=== PATIENT | male | born 1960 | race African-American/Black ===

== ENCOUNTER 2017-01-05 12:03 | Inpatient (IN) | payer SELFPAY ==
[~2017-01-05] VITALS: Ht 167.6 cm; Wt 86.2 kg
[2017-01-05] MEDS ORDERED: IV NORMAL SALINE 1000ML BAG 1,000 ML IV ONE (12:30)
--- NOTE | 2017-01-05 12:34 | RAD ---
Portable chest, 01/05/2017: History: Dizziness The heart size and pulmonary vascularity are normal. No pulmonary infiltrates are seen. There is no evidence of pleural fluid. IMPRESSION: No acute cardiopulmonary abnormality is detected.
[2017-01-05 12:52] LABS: BASO % 0 % (0-3); EOS % 1 % (0-3); HEMATOCRIT 45.9 % (39.0-53.0); HEMOGLOBIN 15.5 g/dL (13.0-17.5); LYMPH # 1.9 x10^3/uL (1.0-4.8); LYMPH % 23 % (24-48); MEAN CORPUSCULAR HEMOGLOBIN 28 pg (25-35); MEAN CORPUSCULAR HGB CONC 34 g/dL (31-37); MEAN CORPUSCULAR VOLUME 83 fL (79-100); MONO % 6 % (0-9); NEUT % 70 % (31-73); PLATELET COUNT 231 x10^3/uL (140-400); RED BLOOD COUNT 5.56 x10^6/uL (4.30-5.70); RED CELL DISTRIBUTION WIDTH 13.4 % (11.5-14.5); WHITE BLOOD COUNT 8.3 x10^3/uL (4.0-11.0)
--- NOTE | 2017-01-05 12:56 | RAD ---
CT of the head without contrast, 01/05/2017: History: Transient loss of consciousness The ventricles are within normal limits in size. There is no shift of the midline structures. There is no evidence of acute intracranial hemorrhage or mass effect. IMPRESSION: The CT of the head without contrast reveals no significant abnormality. PQRS Compliance Statement: One or more of the following individualized dose reduction techniques were utilized for this examination: 1. Automated exposure control 2. Adjustment of the mA and/or kV according to patient size 3. Use of iterative reconstruction technique
[2017-01-05 12:57] LABS: CREATININE 1.2 mg/dL (0.7-1.3); GFR 75.8; POTASSIUM 4.1 mmol/L (3.5-5.1)
[2017-01-05 13:03] LABS: ALBUMIN 3.7 g/dL (3.4-5.0); ALBUMIN/GLOBULIN RATIO 0.9 (1.0-1.7); MAGNESIUM 1.9 mg/dL (1.8-2.4); TOTAL BILIRUBIN 0.5 mg/dL (0.2-1.0); TOTAL PROTEIN 7.6 g/dL (6.4-8.2)
[2017-01-05 13:04] LABS: INR 1.2 (0.8-1.1); PROTHROMBIN TIME PATIENT 14.1 SEC (11.7-14.0)
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
[2017-01-05] MEDS ORDERED: fentaNYL PF VIAL 100 MCG/2 ML VIAL IV PRN (13:30)
[2017-01-05] MEDS ORDERED: ONDANSETRON PF 4 MG/2 ML VIAL. IV PRN (13:30)
--- NOTE | 2017-01-05 14:53 | EKG ---
[facility] [address] [place] [address] Test Date: 2017-01-05 Test Time: 12:16:44 Pat Name: BETZY YEAGER Department: Room: Gender: M [employer] Mate: : 1960 Requested By: SAMINA WILSON Order Number: [id number] Reading MD: Measurements Intervals [place] Rate: 100 P: [place]: QRS: 10 QRSD: 78 T: 40 QT: 328 QTc: 426 Interpretive Statements ATRIAL FIB./FLUTTER WITH RAPID VENTRICULAR RESPONSE QRS(T) CONTOUR ABNORMALITY CONSIDER ANTEROSEPTAL MYOCARDIAL DAMAGE RI6.01 Unconfirmed report No previous ECG available for comparison
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
[2017-01-05 15:00] VITALS: BP 109/61
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
[2017-01-05 16:39] LABS: CHOLESTEROL/HDL RATIO 5.3
[2017-01-05 16:54] VITALS: BP 116/63
[2017-01-05 16:55] VITALS: BP 129/85
[2017-01-05 16:56] VITALS: BP 144/103
[2017-01-05 19:58] VITALS: BP 105/66
[2017-01-05 22:24] VITALS: BP 121/72
[2017-01-06 02:57] VITALS: BP 108/68
[2017-01-06 04:14] LABS: BASO % 0 % (0-3); EOS % 1 % (0-3); HEMATOCRIT 45.2 % (39.0-53.0); HEMOGLOBIN 14.9 g/dL (13.0-17.5); LYMPH # 2.8 x10^3/uL (1.0-4.8); LYMPH % 27 % (24-48); MEAN CORPUSCULAR HEMOGLOBIN 28 pg (25-35); MEAN CORPUSCULAR HGB CONC 33 g/dL (31-37); MEAN CORPUSCULAR VOLUME 84 fL (79-100); MONO % 8 % (0-9); NEUT % 63 % (31-73); PLATELET COUNT 203 x10^3/uL (140-400); RED BLOOD COUNT 5.38 x10^6/uL (4.30-5.70); RED CELL DISTRIBUTION WIDTH 13.1 % (11.5-14.5); WHITE BLOOD COUNT 10.2 x10^3/uL (4.0-11.0)
[2017-01-06 04:28] LABS: CALCIUM 8.3 mg/dL (8.5-10.1); GFR 93.5; POTASSIUM 3.9 mmol/L (3.5-5.1)
[2017-01-06 07:00] VITALS: BP 101/78
--- NOTE | 2017-01-06 08:59 | PDOC ---
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 01/06/17 0859: CARDIO Progress Notes Date and Time Date of Service 01/06/17 Time of Evaluation 0855 Subjective Subjective: No Chest Pain, No shortness of breath, No Palpitations Vitals Vitals Vital Signs Date Time Temp Pulse Resp B/P (MAP) Pulse Ox O2 Delivery O2 Flow Rate FiO2 01/06/17 07:35 Room Air 01/06/17 07:00 98.4 51 18 101/78 (86) 97 98.4 Weight Weight [ ] Input and Output Intake and Output Intake and Output 01/06/17 07:00 Intake Total 900 ml Output Total 1050 ml Balance -150 ml Intake Oral 900 ml Output Urine Total 1050 ml Laboratory Labs Laboratory Tests Test 01/05/17 12:35 01/05/17 19:25 01/06/17 01:35 01/06/17 03:35 White Blood Count 8.3 x10^3/uL (4.0-11.0) 10.2 x10^3/uL (4.0-11.0) Red Blood Count 5.56 x10^6/uL (4.30-5.70) 5.38 x10^6/uL (4.30-5.70) Hemoglobin 15.5 g/dL (13.0-17.5) 14.9 g/dL (13.0-17.5) Hematocrit 45.9 % (39.0-53.0) 45.2 % (39.0-53.0) Mean Corpuscular Volume 83 fL (79-100) 84 fL (79-100) Mean Corpuscular Hemoglobin 28 pg (25-35) 28 pg (25-35) Mean Corpuscular Hemoglobin Concent 34 g/dL (31-37) 33 g/dL (31-37) Red Cell Distribution Width 13.4 % (11.5-14.5) 13.1 % (11.5-14.5) Platelet Count 231 x10^3/uL (140-400) 203 x10^3/uL (140-400) Neutrophils (%) (Auto) 70 % (31-73) 63 % (31-73) Lymphocytes (%) (Auto) 23 % (24-48) 27 % (24-48) Monocytes (%) (Auto) 6 % (0-9) 8 % (0-9) Eosinophils (%) (Auto) 1 % (0-3) 1 % (0-3) Basophils (%) (Auto) 0 % (0-3) 0 % (0-3) Neutrophils # (Auto) 5.8 x10^3uL (1.8-7.7) 6.5 x10^3uL (1.8-7.7) Lymphocytes # (Auto) 1.9 x10^3/uL (1.0-4.8) 2.8 x10^3/uL (1.0-4.8) Monocytes # (Auto) 0.5 x10^3/uL (0.0-1.1) 0.8 x10^3/uL (0.0-1.1) Eosinophils # (Auto) 0.1 x10^3/uL (0.0-0.7) 0.1 x10^3/uL (0.0-0.7) Basophils # (Auto) 0.0 x10^3/uL (0.0-0.2) 0.0 x10^3/uL (0.0-0.2) Prothrombin Time 14.1 SEC (11.7-14.0) Prothromb Time International Ratio 1.2 (0.8-1.1) Activated Partial Thromboplast Time 29 SEC (24-38) Sodium Level 143 mmol/L (136-145) 144 mmol/L (136-145) Potassium Level 4.1 mmol/L (3.5-5.1) 3.9 mmol/L (3.5-5.1) Chloride Level 106 mmol/L (98-107) 108 mmol/L (98-107) Carbon Dioxide Level 27 mmol/L (21-32) 28 mmol/L (21-32) Anion Gap 10 (6-14) 8 (6-14) Blood Urea Nitrogen 16 mg/dL (8-26) 12 mg/dL (8-26) Creatinine 1.2 mg/dL (0.7-1.3) 1.0 mg/dL (0.7-1.3) Estimated GFR (Cockcroft-Gault) 75.8 93.5 BUN/Creatinine Ratio 13 (6-20) Glucose Level 120 mg/dL (70-99) 95 mg/dL (70-99) Calcium Level 9.0 mg/dL (8.5-10.1) 8.3 mg/dL (8.5-10.1) Magnesium Level 1.9 mg/dL (1.8-2.4) Total Bilirubin 0.5 mg/dL (0.2-1.0) Aspartate Amino Transf (AST/SGOT) 18 U/L (15-37) Alanine Aminotransferase (ALT/SGPT) 25 U/L (16-63) Alkaline Phosphatase 79 U/L (46-116) Creatine Kinase 184 U/L (39-308) Troponin I Quantitative < 0.017 ng/mL (0.000-0.055) < 0.017 ng/mL (0.000-0.055) < 0.017 ng/mL (0.000-0.055) MM-Pjb-T-Type Natriuretic Peptide 377 pg/mL (0-124) Total Protein 7.6 g/dL (6.4-8.2) Albumin 3.7 g/dL (3.4-5.0) Albumin/Globulin Ratio 0.9 (1.0-1.7) Triglycerides Level 274 mg/dL (0-150) Cholesterol Level 224 mg/dL (0-200) LDL Cholesterol, Calculated 127 mg/dL (0-100) VLDL Cholesterol, Calculated 55 mg/dL (0-40) Non-HDL Cholesterol Calculated 182 mg/dL (0-129) HDL Cholesterol 42 mg/dL (40-60) Cholesterol/HDL Ratio 5.3 Lipase 113 U/L (73-393) Thyroid Stimulating Hormone (TSH) 1.413 uIU/mL (0.358-3.74) Ethyl Alcohol Level < 10 mg/dL (0-10) Physical Exam HEENT: Neck Supple W Full Motion Chest: Symmetric LUNGS: Clear to Auscultation Heart: S1S2, no murmurs, other (presently SR with PAC's and PVC's. having periods of bigeminal PVC's, afib/flutter, and bradycardia) Abdomen: Soft N/T Extremities: 2+ Dorsalis Pedis, No Edema Neurology: alert, oriented, follow commands Assessment Assessment 1. Presyncope 2. Paroxysmal atrial fibrillation/flutter 3. Bradyarrhythmia 4. Dyslipidemia Recommendations Check echo to evaluate LV function Add antidysrhythmic for suppression; QTc 426 Add ASA for stroke prevention. Although [id number] 1, could consider addition of OAC. Statin therapy SOCORRO DIMAS MD 01/06/17 1137: CARDIO Progress Notes Plan Plan Patient seen and examined. Agree with above nurse practitioner note. Patient continues to have intermittent bradycardia arrhythmias as well as paroxysmal atrial tachycardia including Mobitz type I block. No clear indication for pacemaker as the patient has not had any symptoms here. We'll initiate flecainide therapy and await echocardiogram. Ultimately, will need follow-up and will try to arrange mental health social worker to help with post hospital care. 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 APRN Jan 06, 2017 08:59 SOCORRO DIMAS MD Jan 06, 2017 11:37
[2017-01-06] MEDS: FLECAINIDE ACETATE 50 MG TABLET. PO SCH ×2 (10:48→20:51)
[2017-01-06 11:00] VITALS: BP 102/71
[2017-01-06] MEDS: ASPIRIN ENTERIC COATED 81 MG TABLET.DR. PO SCH (11:00)
--- NOTE | 2017-01-06 11:28 | PDOC ---
PROGRESS NOTES Chief Complaint Chief Complaint 1. Presyncope 2. Paroxysmal atrial fibrillation/flutter 3. Bradyarrhythmia 4. Dyslipidemia 5. History of Present Illness History of Present Illness pt is doing well this morning, he denies any complaints, explained pathophysiology of his arrhythmia to pt and his vggikkh-oh-zaw, echo planned for today Vitals Vitals Vital Signs Date Time Temp Pulse Resp B/P (MAP) Pulse Ox O2 Delivery O2 Flow Rate FiO2 01/06/17 11:00 97.4 96 18 102/71 (81) 96 Room Air 97.4 Physical Exam General: Alert, Oriented X3, Cooperative, No acute distress Heart: Other (irregular rate and rhythm) Lungs: Clear Abdomen: Normal bowel sounds, Soft, No tenderness Extremities: No clubbing, No cyanosis, No edema, Normal pulses Skin: No rashes, No breakdown, No significant lesion Labs LABS Laboratory Tests Test 01/05/17 12:35 01/05/17 19:25 01/06/17 01:35 01/06/17 03:35 White Blood Count 8.3 x10^3/uL (4.0-11.0) 10.2 x10^3/uL (4.0-11.0) Red Blood Count 5.56 x10^6/uL (4.30-5.70) 5.38 x10^6/uL (4.30-5.70) Hemoglobin 15.5 g/dL (13.0-17.5) 14.9 g/dL (13.0-17.5) Hematocrit 45.9 % (39.0-53.0) 45.2 % (39.0-53.0) Mean Corpuscular Volume 83 fL (79-100) 84 fL (79-100) Mean Corpuscular Hemoglobin 28 pg (25-35) 28 pg (25-35) Mean Corpuscular Hemoglobin Concent 34 g/dL (31-37) 33 g/dL (31-37) Red Cell Distribution Width 13.4 % (11.5-14.5) 13.1 % (11.5-14.5) Platelet Count 231 x10^3/uL (140-400) 203 x10^3/uL (140-400) Neutrophils (%) (Auto) 70 % (31-73) 63 % (31-73) Lymphocytes (%) (Auto) 23 % (24-48) 27 % (24-48) Monocytes (%) (Auto) 6 % (0-9) 8 % (0-9) Eosinophils (%) (Auto) 1 % (0-3) 1 % (0-3) Basophils (%) (Auto) 0 % (0-3) 0 % (0-3) Neutrophils # (Auto) 5.8 x10^3uL (1.8-7.7) 6.5 x10^3uL (1.8-7.7) Lymphocytes # (Auto) 1.9 x10^3/uL (1.0-4.8) 2.8 x10^3/uL (1.0-4.8) Monocytes # (Auto) 0.5 x10^3/uL (0.0-1.1) 0.8 x10^3/uL (0.0-1.1) Eosinophils # (Auto) 0.1 x10^3/uL (0.0-0.7) 0.1 x10^3/uL (0.0-0.7) Basophils # (Auto) 0.0 x10^3/uL (0.0-0.2) 0.0 x10^3/uL (0.0-0.2) Prothrombin Time 14.1 SEC (11.7-14.0) Prothromb Time International Ratio 1.2 (0.8-1.1) Activated Partial Thromboplast Time 29 SEC (24-38) Sodium Level 143 mmol/L (136-145) 144 mmol/L (136-145) Potassium Level 4.1 mmol/L (3.5-5.1) 3.9 mmol/L (3.5-5.1) Chloride Level 106 mmol/L (98-107) 108 mmol/L (98-107) Carbon Dioxide Level 27 mmol/L (21-32) 28 mmol/L (21-32) Anion Gap 10 (6-14) 8 (6-14) Blood Urea Nitrogen 16 mg/dL (8-26) 12 mg/dL (8-26) Creatinine 1.2 mg/dL (0.7-1.3) 1.0 mg/dL (0.7-1.3) Estimated GFR (Cockcroft-Gault) 75.8 93.5 BUN/Creatinine Ratio 13 (6-20) Glucose Level 120 mg/dL (70-99) 95 mg/dL (70-99) Calcium Level 9.0 mg/dL (8.5-10.1) 8.3 mg/dL (8.5-10.1) Magnesium Level 1.9 mg/dL (1.8-2.4) Total Bilirubin 0.5 mg/dL (0.2-1.0) Aspartate Amino Transf (AST/SGOT) 18 U/L (15-37) Alanine Aminotransferase (ALT/SGPT) 25 U/L (16-63) Alkaline Phosphatase 79 U/L (46-116) Creatine Kinase 184 U/L (39-308) Troponin I Quantitative < 0.017 ng/mL (0.000-0.055) < 0.017 ng/mL (0.000-0.055) < 0.017 ng/mL (0.000-0.055) VR-Lug-A-Type Natriuretic Peptide 377 pg/mL (0-124) Total Protein 7.6 g/dL (6.4-8.2) Albumin 3.7 g/dL (3.4-5.0) Albumin/Globulin Ratio 0.9 (1.0-1.7) Triglycerides Level 274 mg/dL (0-150) Cholesterol Level 224 mg/dL (0-200) LDL Cholesterol, Calculated 127 mg/dL (0-100) VLDL Cholesterol, Calculated 55 mg/dL (0-40) Non-HDL Cholesterol Calculated 182 mg/dL (0-129) HDL Cholesterol 42 mg/dL (40-60) Cholesterol/HDL Ratio 5.3 Lipase 113 U/L (73-393) Thyroid Stimulating Hormone (TSH) 1.413 uIU/mL (0.358-3.74) Ethyl Alcohol Level < 10 mg/dL (0-10) Review of Systems Review of Systems denies nausea, vomiting, or MELENDEZ Assessment and Plan Assessmemt and Plan Assessment 1. Presyncope 2. Paroxysmal atrial fibrillation/flutter 3. Bradyarrhythmia 4. Dyslipidemia 5. HLP Plan 1. Echo today 2. Antiarrythmic medications per cardiology 3. Start ASA, statin 4. Lipid panel showed 274 tri, 224 chol, 127 LDL, 42 HDL 5. TSH 1.413 6. Appreciate cardiology subspecialty input 7. Discussed plan of care with nursing 8. PT/OT 9. Recheck CBC and BMP tomorrow 10. Reviewed imaging: Head CT showed no acute processes, CXR showed no acute processes 11. Zofran prn for nausea Problems: Comment Review of Relevant I have reviewed the following items tianna (where applicable) has been applied. Labs Laboratory Tests Test 01/05/17 12:35 01/05/17 19:25 01/06/17 01:35 01/06/17 03:35 White Blood Count 8.3 x10^3/uL (4.0-11.0) 10.2 x10^3/uL (4.0-11.0) Red Blood Count 5.56 x10^6/uL (4.30-5.70) 5.38 x10^6/uL (4.30-5.70) Hemoglobin 15.5 g/dL (13.0-17.5) 14.9 g/dL (13.0-17.5) Hematocrit 45.9 % (39.0-53.0) 45.2 % (39.0-53.0) Mean Corpuscular Volume 83 fL (79-100) 84 fL (79-100) Mean Corpuscular Hemoglobin 28 pg (25-35) 28 pg (25-35) Mean Corpuscular Hemoglobin Concent 34 g/dL (31-37) 33 g/dL (31-37) Red Cell Distribution Width 13.4 % (11.5-14.5) 13.1 % (11.5-14.5) Platelet Count 231 x10^3/uL (140-400) 203 x10^3/uL (140-400) Neutrophils (%) (Auto) 70 % (31-73) 63 % (31-73) Lymphocytes (%) (Auto) 23 % (24-48) 27 % (24-48) Monocytes (%) (Auto) 6 % (0-9) 8 % (0-9) Eosinophils (%) (Auto) 1 % (0-3) 1 % (0-3) Basophils (%) (Auto) 0 % (0-3) 0 % (0-3) Neutrophils # (Auto) 5.8 x10^3uL (1.8-7.7) 6.5 x10^3uL (1.8-7.7) Lymphocytes # (Auto) 1.9 x10^3/uL (1.0-4.8) 2.8 x10^3/uL (1.0-4.8) Monocytes # (Auto) 0.5 x10^3/uL (0.0-1.1) 0.8 x10^3/uL (0.0-1.1) Eosinophils # (Auto) 0.1 x10^3/uL (0.0-0.7) 0.1 x10^3/uL (0.0-0.7) Basophils # (Auto) 0.0 x10^3/uL (0.0-0.2) 0.0 x10^3/uL (0.0-0.2) Prothrombin Time 14.1 SEC (11.7-14.0) Prothromb Time International Ratio 1.2 (0.8-1.1) Activated Partial Thromboplast Time 29 SEC (24-38) Sodium Level 143 mmol/L (136-145) 144 mmol/L (136-145) Potassium Level 4.1 mmol/L (3.5-5.1) 3.9 mmol/L (3.5-5.1) Chloride Level 106 mmol/L (98-107) 108 mmol/L (98-107) Carbon Dioxide Level 27 mmol/L (21-32) 28 mmol/L (21-32) Anion Gap 10 (6-14) 8 (6-14) Blood Urea Nitrogen 16 mg/dL (8-26) 12 mg/dL (8-26) Creatinine 1.2 mg/dL (0.7-1.3) 1.0 mg/dL (0.7-1.3) Estimated GFR (Cockcroft-Gault) 75.8 93.5 BUN/Creatinine Ratio 13 (6-20) Glucose Level 120 mg/dL (70-99) 95 mg/dL (70-99) Calcium Level 9.0 mg/dL (8.5-10.1) 8.3 mg/dL (8.5-10.1) Magnesium Level 1.9 mg/dL (1.8-2.4) Total Bilirubin 0.5 mg/dL (0.2-1.0) Aspartate Amino Transf (AST/SGOT) 18 U/L (15-37) Alanine Aminotransferase (ALT/SGPT) 25 U/L (16-63) Alkaline Phosphatase 79 U/L (46-116) Creatine Kinase 184 U/L (39-308) Troponin I Quantitative < 0.017 ng/mL (0.000-0.055) < 0.017 ng/mL (0.000-0.055) < 0.017 ng/mL (0.000-0.055) OI-Xda-U-Type Natriuretic Peptide 377 pg/mL (0-124) Total Protein 7.6 g/dL (6.4-8.2) Albumin 3.7 g/dL (3.4-5.0) Albumin/Globulin Ratio 0.9 (1.0-1.7) Triglycerides Level 274 mg/dL (0-150) Cholesterol Level 224 mg/dL (0-200) LDL Cholesterol, Calculated 127 mg/dL (0-100) VLDL Cholesterol, Calculated 55 mg/dL (0-40) Non-HDL Cholesterol Calculated 182 mg/dL (0-129) HDL Cholesterol 42 mg/dL (40-60) Cholesterol/HDL Ratio 5.3 Lipase 113 U/L (73-393) Thyroid Stimulating Hormone (TSH) 1.413 uIU/mL (0.358-3.74) Ethyl Alcohol Level < 10 mg/dL (0-10) Laboratory Tests Test 01/05/17 12:35 01/05/17 19:25 01/06/17 01:35 01/06/17 03:35 White Blood Count 8.3 x10^3/uL (4.0-11.0) 10.2 x10^3/uL (4.0-11.0) Red Blood Count 5.56 x10^6/uL (4.30-5.70) 5.38 x10^6/uL (4.30-5.70) Hemoglobin 15.5 g/dL (13.0-17.5) 14.9 g/dL (13.0-17.5) Hematocrit 45.9 % (39.0-53.0) 45.2 % (39.0-53.0) Mean Corpuscular Volume 83 fL (79-100) 84 fL (79-100) Mean Corpuscular Hemoglobin 28 pg (25-35) 28 pg (25-35) Mean Corpuscular Hemoglobin Concent 34 g/dL (31-37) 33 g/dL (31-37) Red Cell Distribution Width 13.4 % (11.5-14.5) 13.1 % (11.5-14.5) Platelet Count 231 x10^3/uL (140-400) 203 x10^3/uL (140-400) Neutrophils (%) (Auto) 70 % (31-73) 63 % (31-73) Lymphocytes (%) (Auto) 23 % (24-48) 27 % (24-48) Monocytes (%) (Auto) 6 % (0-9) 8 % (0-9) Eosinophils (%) (Auto) 1 % (0-3) 1 % (0-3) Basophils (%) (Auto) 0 % (0-3) 0 % (0-3) Neutrophils # (Auto) 5.8 x10^3uL (1.8-7.7) 6.5 x10^3uL (1.8-7.7) Lymphocytes # (Auto) 1.9 x10^3/uL (1.0-4.8) 2.8 x10^3/uL (1.0-4.8) Monocytes # (Auto) 0.5 x10^3/uL (0.0-1.1) 0.8 x10^3/uL (0.0-1.1) Eosinophils # (Auto) 0.1 x10^3/uL (0.0-0.7) 0.1 x10^3/uL (0.0-0.7) Basophils # (Auto) 0.0 x10^3/uL (0.0-0.2) 0.0 x10^3/uL (0.0-0.2) Prothrombin Time 14.1 SEC (11.7-14.0) Prothromb Time International Ratio 1.2 (0.8-1.1) Activated Partial Thromboplast Time 29 SEC (24-38) Sodium Level 143 mmol/L (136-145) 144 mmol/L (136-145) Potassium Level 4.1 mmol/L (3.5-5.1) 3.9 mmol/L (3.5-5.1) Chloride Level 106 mmol/L (98-107) 108 mmol/L (98-107) Carbon Dioxide Level 27 mmol/L (21-32) 28 mmol/L (21-32) Anion Gap 10 (6-14) 8 (6-14) Blood Urea Nitrogen 16 mg/dL (8-26) 12 mg/dL (8-26) Creatinine 1.2 mg/dL (0.7-1.3) 1.0 mg/dL (0.7-1.3) Estimated GFR (Cockcroft-Gault) 75.8 93.5 BUN/Creatinine Ratio 13 (6-20) Glucose Level 120 mg/dL (70-99) 95 mg/dL (70-99) Calcium Level 9.0 mg/dL (8.5-10.1) 8.3 mg/dL (8.5-10.1) Magnesium Level 1.9 mg/dL (1.8-2.4) Total Bilirubin 0.5 mg/dL (0.2-1.0) Aspartate Amino Transf (AST/SGOT) 18 U/L (15-37) Alanine Aminotransferase (ALT/SGPT) 25 U/L (16-63) Alkaline Phosphatase 79 U/L (46-116) Creatine Kinase 184 U/L (39-308) Troponin I Quantitative < 0.017 ng/mL (0.000-0.055) < 0.017 ng/mL (0.000-0.055) < 0.017 ng/mL (0.000-0.055) SX-Xle-F-Type Natriuretic Peptide 377 pg/mL (0-124) Total Protein 7.6 g/dL (6.4-8.2) Albumin 3.7 g/dL (3.4-5.0) Albumin/Globulin Ratio 0.9 (1.0-1.7) Triglycerides Level 274 mg/dL (0-150) Cholesterol Level 224 mg/dL (0-200) LDL Cholesterol, Calculated 127 mg/dL (0-100) VLDL Cholesterol, Calculated 55 mg/dL (0-40) Non-HDL Cholesterol Calculated 182 mg/dL (0-129) HDL Cholesterol 42 mg/dL (40-60) Cholesterol/HDL Ratio 5.3 Lipase 113 U/L (73-393) Thyroid Stimulating Hormone (TSH) 1.413 uIU/mL (0.358-3.74) Ethyl Alcohol Level < 10 mg/dL (0-10) Medications Current Medications Sodium Chloride 1,000 ml @ 1,000 mls/hr 1X ONCE IV Last administered on 12:30; Start 01/05/17 at 12:30; Stop 01/05/17 at 13:29; Status DC Ondansetron HCl (Zofran) 4 mg PRN Q8HRS PRN IV NAUSEA/VOMITING; Start 01/05/17 at 13:30; Stop 01/06/17 at 13:29 Fentanyl Citrate (Fentanyl 2ml Vial) 50 mcg PRN Q2HR PRN IV PAIN; Start at 13:30; Stop 01/06/17 at 13:29 Flecainide Acetate (Tambocor) 50 mg Q12HR PO Last administered on 01/06/17 10: 48; Start 01/06/17 at 10:45 Flecainide Acetate (Tambocor) 50 mg Q12HR PO ; Start 01/06/17 at 21:00; Stop 01/06 at 21:00; Status DC Aspirin (Ecotrin) 81 mg [id number] PO Last administered on 01/06/17 11:00; Start 01/06/17 at 11:00 Atorvastatin Calcium (Lipitor) 20 mg QHS PO ; Start 01/06/17 at 21:00 Active Scripts Active Reported No Known Medications Prior To Admisstion (Info) Each 1 Each Vitals/I & O Vital Sign - Last 24 Hours 01/05/17 01/05/17 01/05/17 01/05/17 12:11 12:24 12:44 13:14 Temp 98.6 98.6 Pulse 114 112 53 137 Resp 16 16 16 16 B/P (MAP) 117/68 (84) 117/68 (84) 96/70 (79) 126/64 (84) Pulse Ox 97 97 97 98 O2 Delivery Room Air Room Air Room Air Room Air 01/05/17 01/05/17 01/05/17 01/05/17 14:56 15:00 16:54 16:55 Temp 97.5 97.5 Pulse 75 61 85 Resp 20 B/P (MAP) 109/61 (77) 116/63 (80) 129/85 (100) Pulse Ox 98 O2 Delivery Room Air Room Air 01/05/17 01/05/17 01/05/17 01/05/17 16:56 19:58 20:00 22:24 Temp 97.4 97.9 97.4 97.9 Pulse 79 70 84 Resp 18 18 B/P (MAP) 144/103 (117) 105/66 (79) 121/72 (88) Pulse Ox 100 99 O2 Delivery Room Air Room Air Room Air 01/06/17 01/06/17 01/06/17 01/06/17 02:57 07:00 07:35 10:48 Temp 98.1 98.4 98.1 98.4 Pulse 62 51 82 Resp 16 18 B/P (MAP) 108/68 (81) 101/78 (86) 102/71 Pulse Ox 98 97 O2 Delivery Room Air Room Air Room Air 01/06/17 11:00 Temp 97.4 97.4 Pulse 96 Resp 18 B/P (MAP) 102/71 (81) Pulse Ox 96 O2 Delivery Room Air Intake and Output 01/05/17 01/05/17 01/06/17 15:00 23:00 07:00 Intake Total 500 ml 400 ml Output Total 550 ml 500 ml Balance -50 ml -100 ml EARNESTINE BATEMAN III DO Jan 06, 2017 11:28
[2017-01-06 15:00] VITALS: BP_SYST 111; BP_SYST 131; BP_DIAS 53; BP_DIAS 56
[2017-01-06 19:00] VITALS: BP 109/66
[2017-01-06] MEDS ORDERED: ATORVASTATIN CALCIUM 20 MG TABLET PO SCH (21:00)
[2017-01-06] MEDS ORDERED: FLECAINIDE ACETATE 50 MG TABLET. PO SCH (21:00)
[2017-01-06 23:00] VITALS: BP 119/74
[2017-01-07 03:00] VITALS: BP 114/68
[2017-01-07 07:00] VITALS: BP 101/72
[2017-01-07] MEDS: ASPIRIN ENTERIC COATED 81 MG TABLET.DR. PO SCH (08:13)
[2017-01-07] MEDS: FLECAINIDE ACETATE 50 MG TABLET. PO SCH (08:15)
[2017-01-07 10:55] VITALS: BP 105/64
--- NOTE | 2017-01-07 11:09 | PDOC ---
Provider Note Provider Note No acute events overnight. PAC's, PVC's resolved. Will add low dose Metoprolol 12.5mg bid, Flecainide 50mg bid and home on ASA 325mg daily and lovastatin 20mg daily. Social work eval for outpt needs. If he is able to ambulate without problems on above meds and has appropriate chronotropic response and his echo is normal, ok with DC later today. Thanks for consultation. SOCORRO DIMAS MD Jan 07, 2017 11:09
[2017-01-07] MEDS ORDERED: METOPROLOL TART IMMED RELEASE 25 MG TABLET. PO SCH (11:15)
--- NOTE | 2017-01-07 12:13 | PDOC ---
PROGRESS NOTES Chief Complaint Chief Complaint 1. Presyncope 2. Paroxysmal atrial fibrillation/flutter 3. Bradyarrhythmia 4. Dyslipidemia 5. History of Present Illness History of Present Illness pt is lying comfortably in bed this morning, he states he has no complaints and is doing wlel, probable discharge today Vitals Vitals Vital Signs Date Time Temp Pulse Resp B/P (MAP) Pulse Ox O2 Delivery O2 Flow Rate FiO2 01/07/17 11:22 77 105/64 01/07/17 10:55 98.3 18 99 Room Air 98.3 Physical Exam General: Alert, Oriented X3, Cooperative, No acute distress Heart: Other (irregular rate and rhythm) Lungs: Clear Abdomen: Normal bowel sounds, Soft, No tenderness Extremities: No clubbing, No cyanosis, No edema, Normal pulses Skin: No rashes, No breakdown, No significant lesion Review of Systems Review of Systems denies nausea, vomiting, and MELENDEZ Assessment and Plan Assessmemt and Plan Assessment 1. Presyncope 2. Paroxysmal atrial fibrillation/flutter 3. Bradyarrhythmia 4. Dyslipidemia 5. HLP Plan 1. Echo normal 2. Antiarrythmic medications per cardiology: 12.5 mg metoprolol and 50 mg flecainide 3. Start ASA, statin 4. Lipid panel showed 274 tri, 224 chol, 127 LDL, 42 HDL 5. TSH 1.413 6. Appreciate cardiology subspecialty input 7. Discussed plan of care with nursing 8. PT/OT 9. Recheck CBC and BMP tomorrow 10. Reviewed imaging: Head CT showed no acute processes, CXR showed no acute processes 11. Zofran prn for nausea Problems: Comment Review of Relevant I have reviewed the following items tianna (where applicable) has been applied. Labs Laboratory Tests Test 01/05/17 12:35 01/05/17 19:25 01/06/17 01:35 01/06/17 03:35 White Blood Count 8.3 x10^3/uL (4.0-11.0) 10.2 x10^3/uL (4.0-11.0) Red Blood Count 5.56 x10^6/uL (4.30-5.70) 5.38 x10^6/uL (4.30-5.70) Hemoglobin 15.5 g/dL (13.0-17.5) 14.9 g/dL (13.0-17.5) Hematocrit 45.9 % (39.0-53.0) 45.2 % (39.0-53.0) Mean Corpuscular Volume 83 fL (79-100) 84 fL (79-100) Mean Corpuscular Hemoglobin 28 pg (25-35) 28 pg (25-35) Mean Corpuscular Hemoglobin Concent 34 g/dL (31-37) 33 g/dL (31-37) Red Cell Distribution Width 13.4 % (11.5-14.5) 13.1 % (11.5-14.5) Platelet Count 231 x10^3/uL (140-400) 203 x10^3/uL (140-400) Neutrophils (%) (Auto) 70 % (31-73) 63 % (31-73) Lymphocytes (%) (Auto) 23 % (24-48) 27 % (24-48) Monocytes (%) (Auto) 6 % (0-9) 8 % (0-9) Eosinophils (%) (Auto) 1 % (0-3) 1 % (0-3) Basophils (%) (Auto) 0 % (0-3) 0 % (0-3) Neutrophils # (Auto) 5.8 x10^3uL (1.8-7.7) 6.5 x10^3uL (1.8-7.7) Lymphocytes # (Auto) 1.9 x10^3/uL (1.0-4.8) 2.8 x10^3/uL (1.0-4.8) Monocytes # (Auto) 0.5 x10^3/uL (0.0-1.1) 0.8 x10^3/uL (0.0-1.1) Eosinophils # (Auto) 0.1 x10^3/uL (0.0-0.7) 0.1 x10^3/uL (0.0-0.7) Basophils # (Auto) 0.0 x10^3/uL (0.0-0.2) 0.0 x10^3/uL (0.0-0.2) Prothrombin Time 14.1 SEC (11.7-14.0) Prothromb Time International Ratio 1.2 (0.8-1.1) Activated Partial Thromboplast Time 29 SEC (24-38) Sodium Level 143 mmol/L (136-145) 144 mmol/L (136-145) Potassium Level 4.1 mmol/L (3.5-5.1) 3.9 mmol/L (3.5-5.1) Chloride Level 106 mmol/L (98-107) 108 mmol/L (98-107) Carbon Dioxide Level 27 mmol/L (21-32) 28 mmol/L (21-32) Anion Gap 10 (6-14) 8 (6-14) Blood Urea Nitrogen 16 mg/dL (8-26) 12 mg/dL (8-26) Creatinine 1.2 mg/dL (0.7-1.3) 1.0 mg/dL (0.7-1.3) Estimated GFR (Cockcroft-Gault) 75.8 93.5 BUN/Creatinine Ratio 13 (6-20) Glucose Level 120 mg/dL (70-99) 95 mg/dL (70-99) Calcium Level 9.0 mg/dL (8.5-10.1) 8.3 mg/dL (8.5-10.1) Magnesium Level 1.9 mg/dL (1.8-2.4) Total Bilirubin 0.5 mg/dL (0.2-1.0) Aspartate Amino Transf (AST/SGOT) 18 U/L (15-37) Alanine Aminotransferase (ALT/SGPT) 25 U/L (16-63) Alkaline Phosphatase 79 U/L (46-116) Creatine Kinase 184 U/L (39-308) Troponin I Quantitative < 0.017 ng/mL (0.000-0.055) < 0.017 ng/mL (0.000-0.055) < 0.017 ng/mL (0.000-0.055) VZ-Waz-E-Type Natriuretic Peptide 377 pg/mL (0-124) Total Protein 7.6 g/dL (6.4-8.2) Albumin 3.7 g/dL (3.4-5.0) Albumin/Globulin Ratio 0.9 (1.0-1.7) Triglycerides Level 274 mg/dL (0-150) Cholesterol Level 224 mg/dL (0-200) LDL Cholesterol, Calculated 127 mg/dL (0-100) VLDL Cholesterol, Calculated 55 mg/dL (0-40) Non-HDL Cholesterol Calculated 182 mg/dL (0-129) HDL Cholesterol 42 mg/dL (40-60) Cholesterol/HDL Ratio 5.3 Lipase 113 U/L (73-393) Thyroid Stimulating Hormone (TSH) 1.413 uIU/mL (0.358-3.74) Ethyl Alcohol Level < 10 mg/dL (0-10) Medications Current Medications Sodium Chloride 1,000 ml @ 1,000 mls/hr 1X ONCE IV Last administered on 12:30; Start 01/05/17 at 12:30; Stop 01/05/17 at 13:29; Status DC Ondansetron HCl (Zofran) 4 mg PRN Q8HRS PRN IV NAUSEA/VOMITING; Start 01/05/17 at 13:30; Stop 01/06/17 at 13:29; Status DC Fentanyl Citrate (Fentanyl 2ml Vial) 50 mcg PRN Q2HR PRN IV PAIN; Start at 13:30; Stop 01/06/17 at 13:29; Status DC Flecainide Acetate (Tambocor) 50 mg Q12HR PO Last administered on 01/07/17 08: 15; Start 01/06/17 at 10:45 Flecainide Acetate (Tambocor) 50 mg Q12HR PO ; Start 01/06/17 at 21:00; Stop 01/06 at 21:00; Status DC Aspirin (Ecotrin) 81 mg [id number] PO Last administered on 01/07/17 08:13; Start 01/06/17 at 11:00 Atorvastatin Calcium (Lipitor) 20 mg QHS PO Last administered on 01/06/17 20:51 ; Start 01/06/17 at 21:00 Metoprolol Tartrate (Lopressor) 12.5 mg BID PO Last administered on 01/07/17 11 :22; Start 01/07/17 at 11:15 Active Scripts Active Reported No Known Medications Prior To Admisstion (Info) Each 1 Each Vitals/I & O Vital Sign - Last 24 Hours 01/06/17 01/06/17 01/06/17 01/06/17 15:00 19:00 20:10 20:51 Temp 98.1 98.7 98.1 98.7 Pulse 84 81 83 Resp 18 15 B/P (MAP) 111/56 (74) 109/66 (80) 109/66 Pulse Ox 98 99 O2 Delivery Room Air Room Air Room Air 01/06/17 01/07/17 01/07/17 01/07/17 23:00 03:00 07:00 08:15 Temp 98.8 98.8 97.8 98.8 98.8 97.8 Pulse 55 63 90 68 Resp 17 18 18 B/P (MAP) 119/74 (89) 114/68 (83) 101/72 (82) 101/72 Pulse Ox 100 98 96 O2 Delivery Room Air Room Air Room Air 01/07/17 01/07/17 01/07/17 08:15 10:55 11:22 Temp 98.3 98.3 Pulse 77 77 Resp 18 B/P (MAP) 105/64 (78) 105/64 Pulse Ox 99 O2 Delivery Room Air Room Air Intake and Output 01/06/17 01/06/17 01/07/17 15:00 23:00 07:00 Intake Total 1300 ml 0 ml Output Total 425 ml Balance -425 ml 1300 ml 0 ml EARNESTINE BATEMAN III DO Jan 07, 2017 12:13
--- NOTE | 2017-01-07 12:43 | PDOC3 ---
Discharge Summary Visit Information Date of Discharge: Jan 07, 2017 Admitting Diagnosis: arrhythmia Final Diagnosis Problems Medical Problems: (1) Cardiac arrhythmia Status: Acute (2) Near syncope Status: Acute Brief Hospital Course Allergies Allergies Coded Allergies Type Severity Reaction Last Updated Verified No Known Drug Allergies 01/05/17 No Vital Signs Vital Signs Date Time Temp Pulse Resp B/P (MAP) Pulse Ox O2 Delivery O2 Flow Rate FiO2 01/07/17 11:22 77 105/64 01/07/17 10:55 98.3 18 99 Room Air 98.3 Lab Results Laboratory Tests Test 01/05/17 19:25 01/06/17 01:35 01/06/17 03:35 Troponin I Quantitative < 0.017 ng/mL (0.000-0.055) < 0.017 ng/mL (0.000-0.055) White Blood Count 10.2 x10^3/uL (4.0-11.0) Red Blood Count 5.38 x10^6/uL (4.30-5.70) Hemoglobin 14.9 g/dL (13.0-17.5) Hematocrit 45.2 % (39.0-53.0) Mean Corpuscular Volume 84 fL (79-100) Mean Corpuscular Hemoglobin 28 pg (25-35) Mean Corpuscular Hemoglobin Concent 33 g/dL (31-37) Red Cell Distribution Width 13.1 % (11.5-14.5) Platelet Count 203 x10^3/uL (140-400) Neutrophils (%) (Auto) 63 % (31-73) Lymphocytes (%) (Auto) 27 % (24-48) Monocytes (%) (Auto) 8 % (0-9) Eosinophils (%) (Auto) 1 % (0-3) Basophils (%) (Auto) 0 % (0-3) Neutrophils # (Auto) 6.5 x10^3uL (1.8-7.7) Lymphocytes # (Auto) 2.8 x10^3/uL (1.0-4.8) Monocytes # (Auto) 0.8 x10^3/uL (0.0-1.1) Eosinophils # (Auto) 0.1 x10^3/uL (0.0-0.7) Basophils # (Auto) 0.0 x10^3/uL (0.0-0.2) Sodium Level 144 mmol/L (136-145) Potassium Level 3.9 mmol/L (3.5-5.1) Chloride Level 108 mmol/L (98-107) Carbon Dioxide Level 28 mmol/L (21-32) Anion Gap 8 (6-14) Blood Urea Nitrogen 12 mg/dL (8-26) Creatinine 1.0 mg/dL (0.7-1.3) Estimated GFR (Cockcroft-Gault) 93.5 Glucose Level 95 mg/dL (70-99) Calcium Level 8.3 mg/dL (8.5-10.1) Brief Hospital Course Mr. Beck is a 56 old [sex] who presented with [ ]afib. Admitted Consulted cards Converted back to NSR Pt seen and examined Will dc Dict still broken Total time 33 minutes Discharge Information Miscellaneous Medications Info (No Known Medications Prior To Admisstion), 1 EACH , (Reported) EARNESTINE BATEMAN III, DO Jan 07, 2017 12:43
--- NOTE | 2017-01-07 12:44 | CARD ---
APPROVED REPORT EXAM: LIMITED Two-dimensional echocardiogram. Other Information Quality : Average Rhythm : NSR INDICATION Dizziness and Vertigo 2D DIMENSIONS RVDd3.1 (2.9-3.5cm)Left Atrium(2D)2.9 (1.6-4.0cm) IVSd0.9 (0.7-1.1cm)Aortic Root(2D)3.0 (2.0-3.7cm) LVDd4.9 (3.9-5.9cm)PWd0.9 (0.7-1.1cm) LVDs2.8 (2.5-4.0cm)FS (%) 32.2 % SV81.9 mlLVEF(%)63.1 (>50%) LEFT VENTRICLE The left ventricle is normal size. There is normal left ventricular wall thickness. Left ventricle sy stolic function is normal. The Ejection Fraction is 60-65%. There is normal LV segmental wall motion. RIGHT VENTRICLE The right ventricle is normal size. The right ventricular systolic function is normal. ATRIA The left atrium size is normal. The right atrium size is normal. GREAT VESSELS The aortic root is normal in size. PERICARDIAL EFFUSION There is no evidence of significant pericardial effusion. Critical Notification Critical Value: No <Conclusion> Left ventricle systolic function is normal. The Ejection Fraction is 60-65%. There is normal LV segmental wall motion. Limited evaluation of the valves reveals no acute pathology.
[2017-01-07] MEDS ORDERED: ASPI-612 PO (14:46)
[2017-01-07] MEDS ORDERED: LOVA20TA2 PO (14:47)
[2017-01-07] MEDS ORDERED: METO25TA4 PO (14:48)
[2017-01-07 15:00] VITALS: BP 109/63
== END 2017-01-07 15:30 | disposition home or self-care (01) | DRG 310 ==
LOC: ER 12:03 → 2 SOUTH 13:13
PROVIDERS: ADMIT Internal Medicine; ATTEND Internal Medicine
DX: I48.0 Paroxysmal atrial fibrillation (principal); I48.92 Unspecified atrial flutter; I44.1 Atrioventricular block, second degree; H53.9 Unspecified visual disturbance; E78.5 Hyperlipidemia, unspecified; Z83.3 Family history of diabetes mellitus; Z80.9 Family history of malignant neoplasm, unspecified; Z79.899 Other long term (current) drug therapy; Z79.1 Long term (current) use of non-steroidal anti-inflammatories (NSAID); Z87.898 Personal history of other specified conditions; I49.8 Other specified cardiac arrhythmias
CPT/HCPCS: 36415; 70450; 71010; 80048; 80053; 80061; 82550; 83690; 83735; 83880; 84443; 84484; 85027; 85610; 85730; 93005; 93308; G0480; J7030; 99285-25